=== PATIENT | male | born 1940 | race Caucasian/White ===

== ENCOUNTER 2018-08-09 07:34 | Day surgery (SDC) | payer MEDICARE, OTHER ==
[~2018-08-09] VITALS: Ht 182.9 cm; Wt 231.8 kg
[~2018-08-09 07:34] MED LIST: AMLO5 PO; ASPI325 PO; ATOR40TA PO; Colace100 MG PO; DOCU100 PO; FAMO20 PO; Fleet Enema132 ML PR; GABA300T24 PO; GLIP5 PO; Golytely Packe1 EACH PO; HYDR1TAB94 PO; LOSA25 PO; Lasix20 MG PO; METF500C PO; MIRALAX119 GM PO; Metformin HCl1000 MG PO; OXYC5 PO
[2018-08-09] MEDS ORDERED: LO-DOSE ASPIRIN81 MG (08:33)
== END 2018-08-09 09:47 | disposition home or self-care (01) ==
LOC: ORSCSDS 07:34
PROVIDERS: Student in an Organized Health Care Education/Training Program
PROC: 0DB58ZX Excision of Esophagus, Via Natural or Artificial Opening Endoscopic, Diagnostic (ICD-10-PCS; principal; 2018-08-09 09:15)
PROC: 0DB68ZX Excision of Stomach, Via Natural or Artificial Opening Endoscopic, Diagnostic (ICD-10-PCS; principal; 2018-08-09 09:15)
DX: K22.70 Barrett's esophagus without dysplasia (principal); K29.70 Gastritis, unspecified, without bleeding; K74.60 Unspecified cirrhosis of liver; I10 Essential (primary) hypertension; E11.9 Type 2 diabetes mellitus without complications; Z87.891 Personal history of nicotine dependence; E66.9 Obesity, unspecified; Z68.31 Body mass index [BMI] 31.0-31.9, adult; Z79.82 Long term (current) use of aspirin; Z79.899 Other long term (current) drug therapy
CPT/HCPCS: 82947; 88305; 88342; J2704; J7120

== ENCOUNTER 2018-11-15 07:06 | Day surgery (SDC) | payer MEDICARE, OTHER ==
[~2018-11-15] VITALS: Ht 182.9 cm; Wt 99.2 kg
[~2018-11-15 07:06] MED LIST changes: +GAVILAX17 GM PO; +LO-DOSE ASPIRIN81 MG; +OMEP20ER PO
--- NOTE | 2018-11-15 10:47 | NUR ---
11/15/18 Nano dAdison 5CC NS FOR INFECTION IN SIGMOID COLON POLYP TATTOO SIGMOID COLON LARGE POLYP
--- NOTE | 2018-11-15 11:22 | NUR ---
11/15/18 1122 Lucia Mensah PATIENT REFUSED MULTIPLE OFFERS OF PO FLUIDS.
== END 2018-11-15 11:24 | disposition home or self-care (01) ==
LOC: ORSCSDS 07:06
PROVIDERS: Student in an Organized Health Care Education/Training Program
PROC: 0DB58ZX Excision of Esophagus, Via Natural or Artificial Opening Endoscopic, Diagnostic (ICD-10-PCS; principal; 2018-11-15 08:45)
PROC: 0DBM8ZX Excision of Descending Colon, Via Natural or Artificial Opening Endoscopic, Diagnostic (ICD-10-PCS; principal; 2018-11-15 08:45)
PROC: 0DBN8ZX Excision of Sigmoid Colon, Via Natural or Artificial Opening Endoscopic, Diagnostic (ICD-10-PCS; principal; 2018-11-15 08:45)
PROC: 0DBL8ZX Excision of Transverse Colon, Via Natural or Artificial Opening Endoscopic, Diagnostic (ICD-10-PCS; principal; 2018-11-15 08:45)
PROC: 3E0H8GC Introduction of Other Therapeutic Substance into Lower GI, Via Natural or Artificial Opening Endoscopic (ICD-10-PCS; principal; 2018-11-15 08:45)
PROC: 0DBK8ZX Excision of Ascending Colon, Via Natural or Artificial Opening Endoscopic, Diagnostic (ICD-10-PCS; principal; 2018-11-15 08:45)
DX: K22.70 Barrett's esophagus without dysplasia (principal); K74.60 Unspecified cirrhosis of liver; D12.5 Benign neoplasm of sigmoid colon; D12.2 Benign neoplasm of ascending colon; D12.4 Benign neoplasm of descending colon; D12.3 Benign neoplasm of transverse colon; K57.30 Diverticulosis of large intestine without perforation or abscess without bleeding; I10 Essential (primary) hypertension; E11.9 Type 2 diabetes mellitus without complications; F17.210 Nicotine dependence, cigarettes, uncomplicated; Z79.899 Other long term (current) drug therapy; Z79.82 Long term (current) use of aspirin
CPT/HCPCS: 82947; 88305; J2704; J7120

== ENCOUNTER 2019-08-12 09:01 | Day surgery (SDC) | payer MEDICARE, OTHER ==
[~2019-08-12 09:01] MED LIST changes: +ATORVASTATIN CA40 MG PO
[2019-08-12] MEDS ORDERED: Aspir 8181 MG (09:32)
== END 2019-08-12 12:07 | disposition home or self-care (01) ==
PROVIDERS: Student in an Organized Health Care Education/Training Program
PROC: 0DBK8ZX Excision of Ascending Colon, Via Natural or Artificial Opening Endoscopic, Diagnostic (ICD-10-PCS; principal; 2019-08-12 10:15)
PROC: 0DBL8ZX Excision of Transverse Colon, Via Natural or Artificial Opening Endoscopic, Diagnostic (ICD-10-PCS; principal; 2019-08-12 10:15)
PROC: 0DBN8ZX Excision of Sigmoid Colon, Via Natural or Artificial Opening Endoscopic, Diagnostic (ICD-10-PCS; principal; 2019-08-12 10:15)
PROC: 0DBH8ZX Excision of Cecum, Via Natural or Artificial Opening Endoscopic, Diagnostic (ICD-10-PCS; principal; 2019-08-12 10:15)
DX: Z86.010 Personal history of colon polyps (principal); D12.0 Benign neoplasm of cecum; D12.2 Benign neoplasm of ascending colon; K63.5 Polyp of colon; K57.30 Diverticulosis of large intestine without perforation or abscess without bleeding; K64.8 Other hemorrhoids; I10 Essential (primary) hypertension; J44.9 Chronic obstructive pulmonary disease, unspecified; F17.210 Nicotine dependence, cigarettes, uncomplicated; K70.30 Alcoholic cirrhosis of liver without ascites; N18.3 Chronic kidney disease, stage 3 (moderate); Z86.73 Personal history of transient ischemic attack (TIA), and cerebral infarction without residual deficits; Z79.899 Other long term (current) drug therapy; Z79.82 Long term (current) use of aspirin

== ENCOUNTER 2020-06-17 10:12 | Emergency (ER) | payer MEDICARE, OTHER ==
[~2020-06-17] VITALS: Ht 182.9 cm; Wt 98.4 kg
[~2020-06-17 10:12] MED LIST changes: +Aspir 8181 MG PO
[2020-06-17 10:38] LABS: Hematocrit 45.4 % (37.0-53.0); Hemoglobin 14.5 g/dL (13.5-17.5); Mean Corpuscular HGB 31.9 pg (26.0-34.0); Mean Corpuscular HGB Conc 31.9 g/dL (31.5-36.5); Mean Corpuscular Volume 100 fL (80-100); Mean Platelet Volume 11.1 fL (9.1-12.4); Platelet Count 162 K/mm3 (150-400); RDW Coefficient Variation 17.2 % (11.7-14.2); Red Blood Cell Count 4.55 M/mm3 (4.30-5.90); White Blood Cell Count 10.07 K/mm3 (4.00-11.30)
[2020-06-17 10:57] LABS: Albumin, Blood 2.3 g/dL (3.4-5.0); Albumin/Globulin Ratio 0.4 (0.8-1.8); Bun/Creatinine Ratio 12.3 (12.0-20.0); Creatinine, Blood 2.6 mg/dL (0.60-1.20); Globulin, Blood 5.5 g/dL (2.2-4.0); Potassium, Blood 3.5 mmol/L (3.5-5.5); Total Protein, Blood 7.8 g/dL (6.4-8.2)
[2020-06-17 12:18] LABS: Source, Urine Clean Catch
[2020-06-17 12:21] LABS: Appearance, Urine Clear (Clear); Blood, Urine 4+ (Neg); Color, Urine Yellow (P-Yellow); Glucose Qualitative, Urine 2+ (Neg); Ketones, Urine Neg (Neg); Leukocyte Esterase, Urine 1+ (Neg); Nitrite, Urine Neg (Neg); Protein, Urine 3+ (Neg); Urobilinogen, Urine 3+ (Normal)
[2020-06-17 12:36] LABS: Bilirubin, Urine 1+ (Neg)
[2020-06-17 12:38] LABS: Amorphous Light (0-Heavy); Bacteria Few /hpf; Squamous Epithelial Cells Rare /hpf (Few)
[2020-06-17] MEDS ORDERED: FINA5 PO (13:28)
[2020-06-17] MEDS ORDERED: TAMSULOSIN HCL0.4 M1 PO (13:28)
[2020-06-17] MEDS ORDERED: VITAMIN D32000 UNI1 PO (13:28)
[2020-06-17] MEDS ORDERED: GLIP10 PO (13:29)
[2020-06-17] MEDS ORDERED: B-121000 MC7 PO (13:29)
[2020-06-17] MEDS ORDERED: DOXY100 PO (13:59)
[2020-06-17] MEDS ORDERED: AMOCLA875 PO (13:59)
== END 2020-06-17 14:38 | disposition home or self-care (01) ==
LOC: ER 10:12
PROVIDERS: Emergency Medicine
DX: J18.9 Pneumonia, unspecified organism (principal); E11.22 Type 2 diabetes mellitus with diabetic chronic kidney disease; N18.9 Chronic kidney disease, unspecified; K72.90 Hepatic failure, unspecified without coma; J44.9 Chronic obstructive pulmonary disease, unspecified; F17.210 Nicotine dependence, cigarettes, uncomplicated; Z79.84 Long term (current) use of oral hypoglycemic drugs; Z79.899 Other long term (current) drug therapy; Z79.82 Long term (current) use of aspirin
CPT/HCPCS: 71045; 80053; 81001; 82140; 83690; 85025; 87086; 93005; 93010; 99285-25; A9270

== ENCOUNTER 2020-06-18 08:23 | Emergency (ER) | payer MEDICARE, OTHER ==
[~2020-06-18] VITALS: Ht 182.9 cm; Wt 98.4 kg
[~2020-06-18 08:23] MED LIST changes: +AMOCLA875 PO; +B-121000 MC7 PO; +DOXY100 PO; +FINA5 PO; +GLIP10 PO; +TAMSULOSIN HCL0.4 M1 PO; +VITAMIN D32000 UNI1 PO
[2020-06-18 10:00] LABS: Calcium, Ionized (POC) 1.11 mmol/L (1.10-1.46); Chloride (POC) 106 mmol/L (98-108); Creatinine (POC) 3.5 mg/dL (0.8-1.3); Glucose (ISTAT POC) 114 mg/dL (70-99); Hemoglobin (POC) 13.6 g/dL (13.5-17.5); Potassium (POC) 3.6 mmol/L (3.5-5.5); Sodium (POC) 138 mmol/L (135-148); Total CO2 (POC) 22 mmol/L (21-32)
== END 2020-06-18 10:30 | disposition home or self-care (01) ==
LOC: ER 08:23
PROVIDERS: Physician Assistant
DX: E11.649 Type 2 diabetes mellitus with hypoglycemia without coma (principal); E11.22 Type 2 diabetes mellitus with diabetic chronic kidney disease; N18.9 Chronic kidney disease, unspecified; J44.9 Chronic obstructive pulmonary disease, unspecified; F17.210 Nicotine dependence, cigarettes, uncomplicated; Z79.82 Long term (current) use of aspirin; Z79.899 Other long term (current) drug therapy; Z79.84 Long term (current) use of oral hypoglycemic drugs
CPT/HCPCS: 80047; 82947; 85014; 93005; 93010; 99285-25

== ENCOUNTER 2020-08-28 11:54 | Inpatient (IN) | payer MEDICARE, OTHER ==
[~2020-08-28] VITALS: Ht 182.9 cm; Wt 91.1 kg
[2020-08-28 12:17] LABS: BASOPHILS ABSOLUTE AUTO 0.04 K/mm3 (0.00-0.23); BASOPHILS PERCENT AUTO 0 % (0-2); EOSINOPHILS ABSOLUTE AUTO 0.02 K/mm3 (0.00-0.68); EOSINOPHILS PERCENT AUTO 0 % (0-6); Hematocrit 40.4 % (37.0-53.0); Hemoglobin 14.4 g/dL (13.5-17.5); IMMATURE GRAN ABSOLUTE AUTO 0.16 K/mm3 (0.00-0.10); IMMATURE GRAN PERCENT AUTO 1 % (0-1); LYMPHOCYTES ABSOLUTE AUTO 1.51 K/mm3 (0.84-5.20); LYMPHOCYTES PERCENT AUTO 10 % (21-46); MONOCYTES ABSOLUTE AUTO 0.77 K/mm3 (0.16-1.47); MONOCYTES PERCENT AUTO 5 % (4-13); Mean Corpuscular HGB 31.9 pg (26.0-34.0); Mean Corpuscular HGB Conc 35.6 g/dL (31.5-36.5); Mean Corpuscular Volume 90 fL (80-100); Mean Platelet Volume 10.3 fL (9.1-12.4); NEUTROPHILS ABSOLUTE AUTO 12.52 K/mm3 (1.96-9.15); NEUTROPHILS PERCENT AUTO 83 % (41-73); Platelet Count 245 K/mm3 (150-400); RDW Coefficient Variation 17.9 % (11.7-14.2); RDW Standard Deviation 57.8 fL (35.1-46.3); Red Blood Cell Count 4.51 M/mm3 (4.30-5.90); White Blood Cell Count 15.02 K/mm3 (4.00-11.30)
[2020-08-28 12:37] LABS: Albumin, Blood 1.9 g/dL (3.4-5.0); Albumin/Globulin Ratio 0.4 (0.8-1.8); Bilirubin, Total 4.8 mg/dL (0.1-1.0); Bun/Creatinine Ratio 27.5 (12.0-20.0); Calcium, Blood 7.3 mg/dL (8.5-10.1); Creatinine, Blood 3.16 mg/dL (0.60-1.20); Globulin, Blood 5.1 g/dL (2.2-4.0); Potassium, Blood 3.1 mmol/L (3.5-5.5)
[2020-08-28] MEDS ORDERED: AMLO10 PO (12:51)
[2020-08-28] MEDS ORDERED: CALC.25 PO (12:52)
[2020-08-28] MEDS ORDERED: VITAMIN D325 MC3 PO (12:52)
[2020-08-28] MEDS ORDERED: Vitamin B-121000 MCG PO (12:52)
[2020-08-28] MEDS ORDERED: GLIP10 PO (12:52)
[2020-08-28] MEDS ORDERED: MEGESTROL400 MG/11 PO (12:53)
[2020-08-28] MEDS ORDERED: OXYC5 PO (12:53)
[2020-08-28] MEDS ORDERED: FINA5 PO (12:53)
[2020-08-28] MEDS ORDERED: TAMS.4ER PO (12:53)
[2020-08-28] MEDS ORDERED: TORSE20 PO (12:54)
[2020-08-28 14:03] LABS: International Normalized Ratio 1.35; Prothrombin Time Results 14.3 Sec (9.7-11.5)
[2020-08-28 17:23] LABS: PCO2 Arterial 28.4 mmHg (35-45); PO2 Arterial 58.9 mmHg (80-100); pH Blood Arterial 7.33 (7.35-7.45)
[2020-08-28 17:33] LABS: Magnesium, Blood 1.9 mg/dL (1.6-2.4); Potassium, Blood 3.1 mmol/L (3.5-5.5)
[2020-08-28 20:44] LABS: Hematocrit 40.1 % (37.0-53.0); Hemoglobin 14.1 g/dL (13.5-17.5)
[2020-08-29 04:44] LABS: BASOPHILS ABSOLUTE AUTO 0.04 K/mm3 (0.00-0.23); BASOPHILS PERCENT AUTO 0 % (0-2); EOSINOPHILS ABSOLUTE AUTO 0.11 K/mm3 (0.00-0.68); EOSINOPHILS PERCENT AUTO 1 % (0-6); Hematocrit 37.2 % (37.0-53.0); Hemoglobin 13.4 g/dL (13.5-17.5); IMMATURE GRAN ABSOLUTE AUTO 0.19 K/mm3 (0.00-0.10); IMMATURE GRAN PERCENT AUTO 1 % (0-1); LYMPHOCYTES ABSOLUTE AUTO 1.95 K/mm3 (0.84-5.20); LYMPHOCYTES PERCENT AUTO 15 % (21-46); MONOCYTES ABSOLUTE AUTO 0.78 K/mm3 (0.16-1.47); MONOCYTES PERCENT AUTO 6 % (4-13); Mean Corpuscular HGB 32.1 pg (26.0-34.0); Mean Corpuscular Volume 89 fL (80-100); Mean Platelet Volume 10.7 fL (9.1-12.4); NEUTROPHILS ABSOLUTE AUTO 10.17 K/mm3 (1.96-9.15); NEUTROPHILS PERCENT AUTO 77 % (41-73); Platelet Count 251 K/mm3 (150-400); RDW Coefficient Variation 17.9 % (11.7-14.2); RDW Standard Deviation 57.1 fL (35.1-46.3); Red Blood Cell Count 4.18 M/mm3 (4.30-5.90); White Blood Cell Count 13.24 K/mm3 (4.00-11.30)
[2020-08-29 05:05] LABS: Albumin, Blood 1.8 g/dL (3.4-5.0); Anion Gap 9 mmol/L (6-16); Blood Urea Nitrogen 88 mg/dL (8-24); CO2, Blood 19 mmol/L (21-32); Calcium, Blood 7.1 mg/dL (8.5-10.1); Chloride, Blood 112 mmol/L (98-108); Creatinine, Blood 3.03 mg/dL (0.60-1.20); Glomerular Filtration Rate 21 (60-); Glucose, Blood 129 mg/dL (70-99); Phosphorus, Blood 4.5 mg/dL (2.5-4.9); Potassium, Blood 3.2 mmol/L (3.5-5.5); Sodium, Blood 140 mmol/L (136-145)
[2020-08-29 05:24] LABS: SARS-Cov-2 (COVID-19) PCR, MMC NEGATIVE (NEGATIVE)
--- NOTE | 2020-08-29 06:28 | NUR ---
SUMMARY PT HAS REMAINED NPO SINCE 0000 HRS. PT HAS BEEN SLEEPING FOR MOST OF SHIFT. PT HAD NO COMPLAINTS. CALL LIGHT IN REACH AND BED ALARM ON.
[2020-08-29 08:23] LABS: Source, Urine Clean Catch
[2020-08-29 08:27] LABS: Appearance, Urine Clear (Clear); Blood, Urine 4+ (Neg); Color, Urine Yellow (P-Yellow); Glucose Qualitative, Urine Neg (Neg); Ketones, Urine Neg (Neg); Leukocyte Esterase, Urine 1+ (Neg); Nitrite, Urine Neg (Neg); Protein, Urine 3+ (Neg); Urobilinogen, Urine 2+ (Normal)
[2020-08-29 08:41] LABS: Bilirubin, Urine 1+ (Neg)
[2020-08-29 08:42] LABS: Bacteria Few /hpf; Squamous Epithelial Cells Rare /hpf (Few)
[2020-08-29 08:45] LABS: Red Blood Cells, Urine 25-50 /hpf (0-2)
[2020-08-29 12:16] LABS: Hematocrit 37.6 % (37.0-53.0); Hemoglobin 13.4 g/dL (13.5-17.5)
--- NOTE | 2020-08-29 15:08 | NUR ---
08/29/20 1508 Lianne Delgado History, Chart, Medications and Allergies reviewed before start of procedure. Patient confirms NPO status and agrees with scheduled surgery. 3-LEAD EKG REVIEWED WITH PHYSICIAN PRIOR TO START OF PROCEDURE. MONITOR INTACT WITH CONTINUOUS PULSE OXIMETRY AND INTERMITTENT BP. PATIENT DETERMINED TO BE ASA APPROPRIATE FOR PROPOFOL SEDATION PRIOR TO START OF PROCEDURE BY . Bite Block Placed AND REMOVED AT END OF CASE.
--- NOTE | 2020-08-29 15:21 | NUR ---
History, Chart, Medications and Allergies reviewed before start of procedure. Patient confirms NPO status and agrees with scheduled surgery. Pre-Op teaching done. Pt verbalizes understanding. PT NOTED TO HAVE COURSE UPPER AIRWAY SOUNDS THAT CLEARS WHEN PT COUGHS. LS COURSE THROUGHOUT DURING EXPIRATION. PTS DAUGHTERS STATES THAT PT HAS SOUNDED LIKE THIS FOR AN EXTREMELY LONG TIME. PT HAS LONG HX OF SMOKING SINCE HE WAS ABOUT 14 YEARS OF AGE. IV IN LEFT HAND WAS LEAKING, IV DC'D AND NEW IV PLACED R AC. PT TOLERATED WELL.
--- NOTE | 2020-08-29 17:14 | NUR ---
DAY SURGERY: PATIENT BACK FROM DAY SURGERY. PATIENT ALERT AND ASKING FOR POPSICLE. PATIENT DENIES PAIN OR DISCOMFORT. PATIENT SATTING 92% ON ROOM AIR. PATIENT DENIES NAUSEA OR GASTRIC DISCOMFORT
--- NOTE | 2020-08-29 17:16 | NUR ---
ASKED SEDATION RN RO LET PT WAKE ON HIS OWN.
--- NOTE | 2020-08-29 19:34 | NUR ---
END OF SHIFT SUMMARY: PATIENT DENIED PAIN, NAUSEA, GASTRIC UPSET, AND/OR ABDOMINAL CRAMPING THROUGHOUT THE SHIFT. PATIENT HAD ONE DARK BROWN/BLACK SMEAR. MID AFTERNOON, THE PATIENT LEFT THE UNIT FOR AN EGD. PATIENT TOLERATED WELL. VITALS WERE STABLE ONCE BACK ON THE UNIT. PATIENT AGAIN DENIED NAUSEA, PAIN, GASTRIC UPSET, AND/OR ABDOMINAL CRAMPING. PATIENT TOLERATED PO WITHOUT ANY DISCOMFORT. PATIENT WORKED WITH PT TODAY. DAUGHTER WAS IN TO BE WITH THE PATIENT AND SPEAK WITH THE PHYSICIANS. SHE WILL RETURN TOMORROW.
[2020-08-29 20:53] LABS: Hematocrit 38.6 % (37.0-53.0)
[2020-08-30 04:26] LABS: Hematocrit 37.4 % (37.0-53.0); Hemoglobin 13.1 g/dL (13.5-17.5)
[2020-08-30 04:41] LABS: Albumin, Blood 1.9 g/dL (3.4-5.0); Anion Gap 13 mmol/L (6-16); Blood Urea Nitrogen 88 mg/dL (8-24); Bun/Creatinine Ratio 29.3 (12.0-20.0); CO2, Blood 17 mmol/L (21-32); Calcium, Blood 6.9 mg/dL (8.5-10.1); Chloride, Blood 111 mmol/L (98-108); Glomerular Filtration Rate 21 (60-); Glucose, Blood 295 mg/dL (70-99); Magnesium, Blood 2.2 mg/dL (1.6-2.4); Phosphorus, Blood 3.6 mg/dL (2.5-4.9); Potassium, Blood 3.1 mmol/L (3.5-5.5); Sodium, Blood 141 mmol/L (136-145)
--- NOTE | 2020-08-30 06:14 | NUR ---
SUMMARY PT HAD NO COMPLAINTS. PT HAD FREQUENT LOOSE BM'S. STOOL WAS DARK AND BROWN. PT SLEPT OFF AND ON. CALL LIGHT IN REACH AND BED ALARM ON.
[2020-08-30 12:57] LABS: Hematocrit 36.5 % (37.0-53.0); Hemoglobin 13.1 g/dL (13.5-17.5)
--- NOTE | 2020-08-30 16:35 | NUR ---
SHIFT SUMMARY NO ACUTE CHANGES NOTED TO PT THIS SHIFT. PT A&OX3, ABLE TO MAKE NEEDS KNOWN. PLEASANT AND COOPERATIVE TO CARE. MEDICATED FOR ABD RUQ PAIN PER EMAR X1 THIS SHIFT. NO C/O ANY OTHER ABDOMINAL DISCOMFORT. DENIES CP, SOB OR N&V. PT's DAUGHTER AT BEDSIDE THIS SHIFT. BED AT LOWEST POSITION. CALL LIGHT WITHIN REACH.
--- NOTE | 2020-08-30 22:15 | NUR ---
2135 PT LYING IN BED, DENIES ANY DISCOMFORT AT THIS TIME. PT HAS RONCHI THROUGHOUT LUNGS, ON RA AT 93%. PT HAS A NONPRODUCTIVE COUGH. BS WAS 171. NO OTHER APPARENT SIGNS OF DISTRESS. PT DENIES NEED FOR ANYTHING AT THIS TIME. CALL LIGHT IS IN REACH.
--- NOTE | 2020-08-30 22:46 | NUR ---
PT SITTING UP IN BED EATING A PIECE OF PIE THAT WAS DROPPED OFF FOR HIM. NO APPARENT SIGNS OF DISTRESS. CALL LIGHT IS IN REACH.
--- NOTE | 2020-08-30 23:48 | NUR ---
PT LYING IN BED, EYES CLOSED, APPEARS TO BE RESTING. BREATHING IS EVEN, UNLABORED. NO APPARENT SIGNS OF DISTRESS. CALL LIGHT IS IN REACH.
--- NOTE | 2020-08-31 02:26 | NUR ---
PT LYING IN BED, EYES CLOSED, APPEARS TO BE RESTING. BREATHING IS EVEN, UNLABORED. NO APPARENT SIGNS OF DISTRESS. CALL LIGHT IS IN REACH. BED ALARM IS ON.
--- NOTE | 2020-08-31 04:08 | NUR ---
0331 PT REQUESTED AND RECIEVED PAIN MEDS, WILL EVAL FOR EFFECT. NO OTHER APPARENT SIGNS OF DISTRESS. CALL LIGHT IS IN REACH. BED ALARM IS ON.
--- NOTE | 2020-08-31 04:17 | NUR ---
PT IS AAO X 3-4, AN RA. PT DENIED DISCOMFORT FOR THIS SHIFT. LUNGS HAVE RONCHI THROUGHOUT THAT FROM READING THE PREVIOUS NOTES SEEMS WORSE THIS SHIFT. RUNNING 93% O2. SPOKE WITH DR GALLARDO AND HE ORDERED A CXR FOR THIS AM. BS AT WAS 171.
--- NOTE | 2020-08-31 05:20 | NUR ---
PT LYING IN BED, EYES CLOSEE, APPEARS TO BE RESTING. WAKES EASILY TO VERBAL STIMULI. NO APPARENT SIGNS OF DISTRESS. CALL LIGHT IS IN REACH. BED ALARM IS ON. NO OTHER CHANGES THIS SHIFT.
[2020-08-31 05:46] LABS: BASOPHILS ABSOLUTE AUTO 0.06 K/mm3 (0.00-0.23); BASOPHILS PERCENT AUTO 1 % (0-2); EOSINOPHILS ABSOLUTE AUTO 0.22 K/mm3 (0.00-0.68); EOSINOPHILS PERCENT AUTO 2 % (0-6); Hematocrit 38.1 % (37.0-53.0); Hemoglobin 13.1 g/dL (13.5-17.5); IMMATURE GRAN ABSOLUTE AUTO 0.25 K/mm3 (0.00-0.10); IMMATURE GRAN PERCENT AUTO 2 % (0-1); International Normalized Ratio 1.08; LYMPHOCYTES ABSOLUTE AUTO 1.82 K/mm3 (0.84-5.20); LYMPHOCYTES PERCENT AUTO 15 % (21-46); MONOCYTES ABSOLUTE AUTO 0.84 K/mm3 (0.16-1.47); MONOCYTES PERCENT AUTO 7 % (4-13); Mean Corpuscular HGB 31.9 pg (26.0-34.0); Mean Corpuscular HGB Conc 34.4 g/dL (31.5-36.5); Mean Corpuscular Volume 93 fL (80-100); Mean Platelet Volume 10.8 fL (9.1-12.4); NEUTROPHILS ABSOLUTE AUTO 9.02 K/mm3 (1.96-9.15); NEUTROPHILS PERCENT AUTO 74 % (41-73); Platelet Count 236 K/mm3 (150-400); Prothrombin Time Results 11.6 Sec (9.7-11.5); RDW Coefficient Variation 18.1 % (11.7-14.2); RDW Standard Deviation 58.7 fL (35.1-46.3); Red Blood Cell Count 4.11 M/mm3 (4.30-5.90); White Blood Cell Count 12.21 K/mm3 (4.00-11.30)
[2020-08-31 06:01] LABS: Albumin, Blood 1.8 g/dL (3.4-5.0); Albumin/Globulin Ratio 0.4 (0.8-1.8); Bun/Creatinine Ratio 28.7 (12.0-20.0); Calcium, Blood 6.2 mg/dL (8.5-10.1); Creatinine, Blood 2.72 mg/dL (0.60-1.20); Globulin, Blood 4.9 g/dL (2.2-4.0); Magnesium, Blood 1.9 mg/dL (1.6-2.4); Phosphorus, Blood 2.8 mg/dL (2.5-4.9); Potassium, Blood 2.7 mmol/L (3.5-5.5); Total Protein, Blood 6.7 g/dL (6.4-8.2)
--- NOTE | 2020-08-31 15:57 | NUR ---
Update 08/31/2020 1555: Per Arlene with [place] [facility], [facility] has accepted pt. pending discharge date/time and COVID test. Transportation will be needed at that time. Notified family - daughter Ericka. Update 08/31/2020 1032: SNF recommended by PT and hospital physician. Discussed with daughter Ericka who has concerns regarding patients previous living conditions. She states that pt. was not being care for well at step son Anam's home. Ericka is agreeable to SNF and has talked with the rest of the family as well. They have requested [facility], but are agreeable to [facility] if there is not a bed available at [facility].
--- NOTE | 2020-08-31 19:25 | NUR ---
SHIFT SUMMARY PT A&O3-4, ABLE TO MAKE NEEDS KNOWN, PLEASANT AND COOPERATIVE TO CARE. PT MEDICATED FOR RUQ ABD PAIN PER EMAR. NO C/O CP, SOB, OR N&V. PT's DAUGHTER AT BEDSIDE THIS SHIFT. PT IS CONTINENT / INCONTINENT, NO C/O DYSURIA. PT WORKED WITH PT THIS SHIFT, PT REQUIRES 1P ASSIST W/ FWW. PT CALM AND COMFORTABLE IN BED AT THIS TIME. BED AT LOWEST POSITION. CALL LIGHT WITHIN REACH.
[2020-09-01 04:46] LABS: Hematocrit 35.1 % (37.0-53.0); Hemoglobin 12.5 g/dL (13.5-17.5)
[2020-09-01 05:06] LABS: Magnesium, Blood 1.6 mg/dL (1.6-2.4)
[2020-09-01 05:08] LABS: Albumin, Blood 1.6 g/dL (3.4-5.0); Anion Gap 9 mmol/L (6-16); Blood Urea Nitrogen 67 mg/dL (8-24); Bun/Creatinine Ratio 27.3 (12.0-20.0); CO2, Blood 20 mmol/L (21-32); Calcium, Blood 5.8 mg/dL (8.5-10.1); Chloride, Blood 109 mmol/L (98-108); Creatinine, Blood 2.45 mg/dL (0.60-1.20); Glomerular Filtration Rate 27 (60-); Glucose, Blood 168 mg/dL (70-99); Phosphorus, Blood 2.8 mg/dL (2.5-4.9); Potassium, Blood 3.7 mmol/L (3.5-5.5); Sodium, Blood 138 mmol/L (136-145)
--- NOTE | 2020-09-01 05:49 | NUR ---
DR Craig updated on critical calcium value & he ordered 1 amp calcium gluconate IVPB x 1 to treat. PT has had IV bicarb running all night at 50 ml HR. PT asks for pain med this AM Ultram 50 mg given for rt upper abd pain. No S/SX GI bleed.
[2020-09-01 12:51] LABS: Influenza A Negative (NEGATIVE); Influenza B Negative (NEGATIVE)
[2020-09-01 13:23] LABS: SARS-Cov-2 (COVID-19) PCR, MMC NEGATIVE (NEGATIVE)
[2020-09-01] MEDS ORDERED: GLIP5 PO (13:46)
[2020-09-01] MEDS ORDERED: SPIR25 PO (13:46)
[2020-09-01] MEDS ORDERED: PANT40 PO (13:47)
[2020-09-01] MEDS ORDERED: POTCHL20ER PO (13:47)
--- NOTE | 2020-09-01 15:16 | NUR ---
Update 08/31/2020 1555: Davian Jacobs with [place] [facility], [facility] has accepted pt. pending discharge date/time and COVID test. Transportation will be needed at that time. Notified family - daughter Ericka. Pt. will need appointment scheduled by [facility] team via either telehealth and CCM team or in office. Advised CCM coordinator that pt. is admitting.
--- NOTE | 2020-09-01 16:19 | NUR ---
DISCHARGE SUMMARY PT DISCHARGE TO FACILITY THIS SHIFT. TRANSPORTED VIA [facility]. PT TRANSPORTED TO [facility]. REPORT GIVEN TO MAGALY MONTERO. PT's DAUGHTER PRESENT DURING DISCHARGE PROCESS. NO COMPLAINTS OR CONCERNS NOTED FROM PATIENT OR FAMILY. PT MEDICATED FOR PAIN PER EMAR THIS SHIFT. PT CALM AND COMFORTABLE PRIOR TO DISCHARGE. PT AND FAMILY VERBALIZED UNDERSTANDING OF DISCHARGE ORDERS. DISCHARGE PAPERWORK GIVEN TO PT UPON DISCHARGE.
[2020-09-01] MEDS ORDERED: TRAM50 PO (17:44)
== END 2020-09-01 16:08 | DRG 381 ==
LOC: ER 11:54 → MEDS 11:55
PROVIDERS: Emergency Medicine; Family Medicine; Internal Medicine Gastroenterology; Internal Medicine Nephrology; ADMIT Internal Medicine
PROC: 0DB68ZX Excision of Stomach, Via Natural or Artificial Opening Endoscopic, Diagnostic (ICD-10-PCS; principal; 2020-08-30)
DX: K22.11 Ulcer of esophagus with bleeding (principal); N18.4 Chronic kidney disease, stage 4 (severe); N17.9 Acute kidney failure, unspecified; E87.2 Acidosis; N25.81 Secondary hyperparathyroidism of renal origin; E87.1 Hypo-osmolality and hyponatremia; Z66 Do not resuscitate; K22.70 Barrett's esophagus without dysplasia; K26.4 Chronic or unspecified duodenal ulcer with hemorrhage; Z20.822 Contact with and (suspected) exposure to COVID-19; E86.9 Volume depletion, unspecified; J44.9 Chronic obstructive pulmonary disease, unspecified; E87.6 Hypokalemia; E11.22 Type 2 diabetes mellitus with diabetic chronic kidney disease; D72.829 Elevated white blood cell count, unspecified; M19.90 Unspecified osteoarthritis, unspecified site; K70.30 Alcoholic cirrhosis of liver without ascites; K70.10 Alcoholic hepatitis without ascites; E11.42 Type 2 diabetes mellitus with diabetic polyneuropathy; G25.81 Restless legs syndrome; R63.4 Abnormal weight loss; D63.1 Anemia in chronic kidney disease; N40.0 Benign prostatic hyperplasia without lower urinary tract symptoms; I12.9 Hypertensive chronic kidney disease with stage 1 through stage 4 chronic kidney disease, or unspecified chronic kidney disease; E78.5 Hyperlipidemia, unspecified; F17.210 Nicotine dependence, cigarettes, uncomplicated; Z86.73 Personal history of transient ischemic attack (TIA), and cerebral infarction without residual deficits; Z98.890 Other specified postprocedural states; Z91.030 Bee allergy status; Z79.84 Long term (current) use of oral hypoglycemic drugs; Z79.899 Other long term (current) drug therapy
CPT/HCPCS: 36415; 36600; 71045; 74150; 76700; 80053; 80069; 81001; 82105; 82803; 82941; 82947; 83605; 83735; 84100; 84132; 84300; 85014; 85018; 85025; 85610; 85730; 86850; 86900; 86901; 87040; 87086; 87804; 87807; 88305; 88342; 93005; 93010; 96365; 96366; 96372; 96375; 96376; 97110; 97116; 97161; 97166; 97530; 97535; 99285-25; A9270; C9113; G0378; J0610; J0696; J1170; J1650; J2405; J2704; J3480; J7030; J7050; J7070; U0004

== ENCOUNTER → 2020-11-05 | Outpatient (CLI) | payer MEDICARE, OTHER ==
[~2020-11-05] MED LIST changes: +AMLO10 PO; +CALC.25 PO; +MEGESTROL400 MG/11 PO; +PANT40 PO; +POTCHL20ER PO; +SPIR25 PO; +TAMS.4ER PO; +TORSE20 PO; +TRAM50 PO; +VITAMIN D325 MC3 PO; +Vitamin B-121000 MCG PO
[2020-11-05 11:24] LABS: Anion Gap 8 mmol/L (6-16); Blood Urea Nitrogen 83 mg/dL (8-24); Bun/Creatinine Ratio 20.7 (12.0-20.0); CO2, Blood 16 mmol/L (21-32); Calcium, Blood 8.7 mg/dL (8.5-10.1); Chloride, Blood 115 mmol/L (98-108); Creatinine, Blood 4.01 mg/dL (0.60-1.20); Glomerular Filtration Rate 14 (60-); Glucose, Blood 128 mg/dL (70-99); Phosphorus, Blood 5.1 mg/dL (2.5-4.9); Potassium, Blood 4.4 mmol/L (3.5-5.5); Sodium, Blood 139 mmol/L (136-145)
== END | disposition home or self-care (01) ==
LOC: EDSTATUS 09:48 → LAB RH 10:01
PROVIDERS: Family Medicine
DX: N18.4 Chronic kidney disease, stage 4 (severe) (principal)
CPT/HCPCS: 80069; 85018

== ENCOUNTER → 2020-11-13 | Outpatient (CLI) | payer MEDICARE, OTHER ==
[2020-11-14 16:12] LABS: CORONAVIRUS (COVID19) CSH-NRL Negative (Negative)
== END | disposition home or self-care (01) ==
LOC: EDSTATUS 09:49 → LAB RH 12:49
PROVIDERS: Internal Medicine
DX: U07.1 COVID-19 (principal)
CPT/HCPCS: U0003

== ENCOUNTER → 2020-12-09 | Outpatient (CLI) | payer MEDICARE, OTHER ==
[2020-12-09 13:00] LABS: Albumin, Blood 2.4 g/dL (3.4-5.0); Anion Gap 8 mmol/L (6-16); Blood Urea Nitrogen 76 mg/dL (8-24); Bun/Creatinine Ratio 20.7 (12.0-20.0); CO2, Blood 18 mmol/L (21-32); Chloride, Blood 112 mmol/L (98-108); Creatinine, Blood 3.67 mg/dL (0.60-1.20); Glomerular Filtration Rate 16 (60-); Glucose, Blood 236 mg/dL (70-99); Phosphorus, Blood 5.1 mg/dL (2.5-4.9); Potassium, Blood 4.7 mmol/L (3.5-5.5); Sodium, Blood 138 mmol/L (136-145)
== END | disposition home or self-care (01) ==
LOC: LAB RH 11:25 → EDSTATUS 13:58
PROVIDERS: Family Medicine
DX: E11.22 Type 2 diabetes mellitus with diabetic chronic kidney disease (principal); N18.4 Chronic kidney disease, stage 4 (severe); K70.31 Alcoholic cirrhosis of liver with ascites; K26.0 Acute duodenal ulcer with hemorrhage
CPT/HCPCS: 80069; 83036

== ENCOUNTER → 2021-02-05 | Outpatient (CLI) | payer MEDICARE, OTHER ==
[~2021-02-05] MED LIST changes: +Acetaminophen325 M1 PO; +CEPH250A PO
[2021-02-05 17:52] LABS: Albumin, Blood 2.3 g/dL (3.4-5.0); Anion Gap 8 mmol/L (6-16); Blood Urea Nitrogen 51 mg/dL (8-24); Bun/Creatinine Ratio 14.1 (12.0-20.0); CO2, Blood 20 mmol/L (21-32); Calcium, Blood 8.6 mg/dL (8.5-10.1); Chloride, Blood 107 mmol/L (98-108); Creatinine, Blood 3.61 mg/dL (0.60-1.20); Glomerular Filtration Rate 16 (60-); Glucose, Blood 181 mg/dL (70-99); Phosphorus, Blood 5.5 mg/dL (2.5-4.9); Sodium, Blood 135 mmol/L (136-145)
== END | disposition home or self-care (01) ==
LOC: EDSTATUS 10:01 → LAB RH 16:50
PROVIDERS: Internal Medicine
DX: K70.31 Alcoholic cirrhosis of liver with ascites (principal)
CPT/HCPCS: 80069

== ENCOUNTER → 2021-02-16 | Outpatient (CLI) | payer MEDICARE, OTHER ==
[2021-02-16 12:31] LABS: Albumin, Blood 2.4 g/dL (3.4-5.0); Anion Gap 10 mmol/L (6-16); Blood Urea Nitrogen 57 mg/dL (8-24); Bun/Creatinine Ratio 16.8 (12.0-20.0); CO2, Blood 22 mmol/L (21-32); Calcium, Blood 8.9 mg/dL (8.5-10.1); Chloride, Blood 107 mmol/L (98-108); Creatinine, Blood 3.39 mg/dL (0.60-1.20); Glomerular Filtration Rate 18 (60-); Glucose, Blood 180 mg/dL (70-99); Phosphorus, Blood 3.9 mg/dL (2.5-4.9); Sodium, Blood 139 mmol/L (136-145)
== END | disposition home or self-care (01) ==
LOC: LAB RH 09:30 → EDSTATUS 10:03
PROVIDERS: Family Medicine
DX: K70.31 Alcoholic cirrhosis of liver with ascites (principal); N18.9 Chronic kidney disease, unspecified; D63.1 Anemia in chronic kidney disease
CPT/HCPCS: 80069

== ENCOUNTER → 2021-03-15 | Outpatient (CLI) | payer MEDICARE, OTHER | END | disposition home or self-care (01) | LOC: LAB RH 11:20 → EDSTATUS 14:44 | DX: E11.40 Type 2 diabetes mellitus with diabetic neuropathy, unspecified (principal) | CPT/HCPCS: 83036 ==

== ENCOUNTER → 2021-03-25 | Outpatient (CLI) | payer MEDICARE, OTHER ==
[2021-03-25 09:58] LABS: Albumin, Blood 2.5 g/dL (3.4-5.0); Anion Gap 8 mmol/L (6-16); Blood Urea Nitrogen 52 mg/dL (8-24); Bun/Creatinine Ratio 11.2 (12.0-20.0); CO2, Blood 26 mmol/L (21-32); Calcium, Blood 8.7 mg/dL (8.5-10.1); Chloride, Blood 103 mmol/L (98-108); Creatinine, Blood 4.66 mg/dL (0.60-1.20); Glomerular Filtration Rate 12 (60-); Glucose, Blood 86 mg/dL (70-99); Phosphorus, Blood 4.7 mg/dL (2.5-4.9); Potassium, Blood 4.4 mmol/L (3.5-5.5); Sodium, Blood 137 mmol/L (136-145)
== END | disposition home or self-care (01) ==
LOC: LAB RH 08:22 → EDSTATUS 14:46
PROVIDERS: Family Medicine
DX: N18.5 Chronic kidney disease, stage 5 (principal); R94.5 Abnormal results of liver function studies
CPT/HCPCS: 80069; 85018

== ENCOUNTER → 2021-04-05 | Outpatient (CLI) | payer MEDICARE, OTHER ==
[2021-04-05 16:27] LABS: Albumin, Blood 2.6 g/dL (3.4-5.0); Anion Gap 8 mmol/L (6-16); Blood Urea Nitrogen 49 mg/dL (8-24); Bun/Creatinine Ratio 11.7 (12.0-20.0); CO2, Blood 24 mmol/L (21-32); Calcium, Blood 8.5 mg/dL (8.5-10.1); Chloride, Blood 102 mmol/L (98-108); Creatinine, Blood 4.18 mg/dL (0.60-1.20); Glomerular Filtration Rate 14 (60-); Glucose, Blood 189 mg/dL (70-99); Phosphorus, Blood 3.8 mg/dL (2.5-4.9); Potassium, Blood 4.7 mmol/L (3.5-5.5); Sodium, Blood 134 mmol/L (136-145)
== END | disposition home or self-care (01) ==
LOC: EDSTATUS 11:05 → LAB RH 13:37
PROVIDERS: Internal Medicine
DX: K70.31 Alcoholic cirrhosis of liver with ascites (principal)
CPT/HCPCS: 80069; 85018

== ENCOUNTER → 2021-04-15 | Outpatient (CLI) | payer MEDICARE, OTHER ==
[2021-04-15 13:54] LABS: Albumin, Blood 2.8 g/dL (3.4-5.0); Anion Gap 11 mmol/L (6-16); Blood Urea Nitrogen 64 mg/dL (8-24); Bun/Creatinine Ratio 15.2 (12.0-20.0); CO2, Blood 23 mmol/L (21-32); Calcium, Blood 8.4 mg/dL (8.5-10.1); Chloride, Blood 103 mmol/L (98-108); Glomerular Filtration Rate 14 (60-); Glucose, Blood 269 mg/dL (70-99); Phosphorus, Blood 4.4 mg/dL (2.5-4.9); Potassium, Blood 4.1 mmol/L (3.5-5.5); Sodium, Blood 137 mmol/L (136-145)
== END | disposition home or self-care (01) ==
LOC: LAB RH 10:45 → EDSTATUS 11:07
PROVIDERS: Internal Medicine Nephrology
DX: N18.4 Chronic kidney disease, stage 4 (severe) (principal)
CPT/HCPCS: 80069; 85018

== ENCOUNTER → 2021-04-19 | Outpatient (CLI) | payer MEDICARE, OTHER ==
[2021-04-20 08:11] LABS: CALCIUM, SERUM 8.9 mg/dL (8.6-10.2); CREATININE, SERUM 3.89 mg/dL (0.76-1.27); PHOSPHORUS, SERUM 4.2 mg/dL (2.8-4.1); POTASSIUM, SERUM 4.2 mmol/L (3.5-5.2)
== END | disposition home or self-care (01) ==
LOC: EDSTATUS 11:09 → LAB RH 11:41
PROVIDERS: Family Medicine
DX: N18.5 Chronic kidney disease, stage 5 (principal)
CPT/HCPCS: 80069; 85018

== ENCOUNTER 2021-04-21 17:29 | Inpatient (IN) | payer MEDICARE, OTHER ==
[~2021-04-21] VITALS: Ht 182.9 cm; Wt 92.0 kg
[~2021-04-21 17:29] MED LIST changes: -Acetaminophen325 M1 PO; -CEPH250A PO
[2021-04-21 18:20] LABS: BASOPHILS ABSOLUTE AUTO 0.08 K/mm3 (0.00-0.23); BASOPHILS PERCENT AUTO 1 % (0-2); EOSINOPHILS ABSOLUTE AUTO 0.49 K/mm3 (0.00-0.68); EOSINOPHILS PERCENT AUTO 7 % (0-6); Hematocrit 37.9 % (37.0-53.0); Hemoglobin 12.1 g/dL (13.5-17.5); IMMATURE GRAN ABSOLUTE AUTO 0.02 K/mm3 (0.00-0.10); IMMATURE GRAN PERCENT AUTO 0 % (0-1); LYMPHOCYTES ABSOLUTE AUTO 2.49 K/mm3 (0.84-5.20); LYMPHOCYTES PERCENT AUTO 34 % (21-46); MONOCYTES ABSOLUTE AUTO 0.53 K/mm3 (0.16-1.47); MONOCYTES PERCENT AUTO 7 % (4-13); Mean Corpuscular HGB 30.3 pg (26.0-34.0); Mean Corpuscular HGB Conc 31.9 g/dL (31.5-36.5); Mean Corpuscular Volume 95 fL (80-100); Mean Platelet Volume 9.4 fL (9.1-12.4); NEUTROPHILS ABSOLUTE AUTO 3.71 K/mm3 (1.96-9.15); NEUTROPHILS PERCENT AUTO 51 % (41-73); Platelet Count 225 K/mm3 (150-400); RDW Coefficient Variation 13.7 % (11.7-14.2); RDW Standard Deviation 47.7 fL (35.1-46.3); White Blood Cell Count 7.32 K/mm3 (4.00-11.30)
[2021-04-21 18:25] LABS: Calcium, Ionized (POC) 1.15 mmol/L (1.10-1.46); Chloride (POC) 100 mmol/L (98-108); Creatinine (POC) 4.5 mg/dL (0.8-1.3); Glucose (ISTAT POC) 170 mg/dL (70-99); Hemoglobin (POC) 12.2 g/dL (13.5-17.5); Potassium (POC) 4.3 mmol/L (3.5-5.5); Sodium (POC) 134 mmol/L (135-148); Total CO2 (POC) 24 mmol/L (21-32)
[2021-04-21 18:55] LABS: Albumin/Globulin Ratio 0.6 (0.8-1.8); Bilirubin, Total 0.3 mg/dL (0.1-1.0); Bun/Creatinine Ratio 12.7 (12.0-20.0); Calcium, Blood 8.6 mg/dL (8.5-10.1); Creatinine, Blood 4.42 mg/dL (0.60-1.20); Globulin, Blood 4.7 g/dL (2.2-4.0); Magnesium, Blood 1.8 mg/dL (1.6-2.4); Total Protein, Blood 7.7 g/dL (6.4-8.2); Troponin I 0.033 ng/mL (0.000-0.040)
[2021-04-21 20:43] LABS: Thyroid Stimulating Hormone 4.99 uIU/mL (0.360-4.800)
[2021-04-21 21:02] LABS: Influenza A, PCR NEGATIVE (NEGATIVE); Influenza B, PCR NEGATIVE (NEGATIVE); Resp Syncytial Virus, PCR NEGATIVE (NEGATIVE); SARS-Cov-2 (COVID-19) PCR, MMC NEGATIVE (NEGATIVE)
--- NOTE | 2021-04-22 02:06 | NUR ---
ARRIVAL TO ICU 1 PT ARRIVED TO ICU 1 AT 2149 FROM DESIGN CHECKER ALREADY ON ICU BED. PT IS ALERT/ORIENTED X3; IS ABLE TO MAKE HIS NEEDS KNOWN BUT CAN BE REPETATIVE AND UNSURE OF SITUATION. AFEBRILE. SPO2 >90% ON RA. TEMPORARY PACER IN PLACE TO RT IJ; PT TOLERATING WELL; HR 60'S; PACER SETTINGS ARE RATE 60, OUTPUT 3, SENSE 2; ALL TEMPORARY PACING LINES UNDER TAGEDERM DRESSING PLACED IN THE DESIGN CHECKER; INSTRUCTED TO NOT REMOVE TAGEDERM DRESSING AND IF DRESSING BECOMES UNDONE TO CALL DR BAIG TO REPLACE. SBP 140-150'S. PT NO C/O CHEST PAIN, OR DYSPNEA. SEE ADDMISSION ASSESSMENT FOR FULL ASSESSMENT.
[2021-04-22 03:20] LABS: BASOPHILS ABSOLUTE AUTO 0.06 K/mm3 (0.00-0.23); BASOPHILS PERCENT AUTO 1 % (0-2); EOSINOPHILS ABSOLUTE AUTO 0.37 K/mm3 (0.00-0.68); EOSINOPHILS PERCENT AUTO 7 % (0-6); Hematocrit 34.3 % (37.0-53.0); Hemoglobin 11.1 g/dL (13.5-17.5); IMMATURE GRAN ABSOLUTE AUTO 0.01 K/mm3 (0.00-0.10); IMMATURE GRAN PERCENT AUTO 0 % (0-1); LYMPHOCYTES ABSOLUTE AUTO 2.23 K/mm3 (0.84-5.20); LYMPHOCYTES PERCENT AUTO 40 % (21-46); MONOCYTES ABSOLUTE AUTO 0.55 K/mm3 (0.16-1.47); MONOCYTES PERCENT AUTO 10 % (4-13); Mean Corpuscular HGB 30.7 pg (26.0-34.0); Mean Corpuscular HGB Conc 32.4 g/dL (31.5-36.5); Mean Corpuscular Volume 95 fL (80-100); Mean Platelet Volume 9.2 fL (9.1-12.4); NEUTROPHILS ABSOLUTE AUTO 2.36 K/mm3 (1.96-9.15); NEUTROPHILS PERCENT AUTO 42 % (41-73); Platelet Count 182 K/mm3 (150-400); RDW Coefficient Variation 14.1 % (11.7-14.2); Red Blood Cell Count 3.61 M/mm3 (4.30-5.90); White Blood Cell Count 5.58 K/mm3 (4.00-11.30)
[2021-04-22 03:55] LABS: Albumin, Blood 2.5 g/dL (3.4-5.0); Albumin/Globulin Ratio 0.5 (0.8-1.8); Bilirubin, Total 0.3 mg/dL (0.1-1.0); Bun/Creatinine Ratio 14.1 (12.0-20.0); Calcium, Blood 8.5 mg/dL (8.5-10.1); Creatinine, Blood 4.26 mg/dL (0.60-1.20); Globulin, Blood 4.7 g/dL (2.2-4.0); Potassium, Blood 3.7 mmol/L (3.5-5.5); Total Protein, Blood 7.2 g/dL (6.4-8.2)
--- NOTE | 2021-04-22 06:32 | NUR ---
END OF SHIFT SUMMARY NO ACUTE EVENTS OVER NIGHT; PT SLEPT FOR SEVERAL HOURS. NO CHANGE IN NEURO STATUS, IS VERY EEK. AFEBRILE. WHILE SLEEPING PT NEEDING 4L NC TO MAINTAIN SPO2 >90%. TEMPORARY PACER SETTINGS REMAIN THE SAME ALL NIGHT, HR 60-70'S; OCCATIONALLY HR 50'S. SBP 130-140'S. NPO SINCE MIDNIGHT. PT ABLE TO USE URINAL INDEPENDENTLY. WILL REPORT TO AM RN WHEN AVAILABLE.
--- NOTE | 2021-04-22 07:51 | NUR ---
ASSUMPTION OF CARE Pt is awake and a/o x 3 this morning with no complaints. He is very pleasant and asking about the time of his pacer placement. Dr Gerardo stopped by and asked to keep the pt NPO this morning so he can go to the heart center this morning. His temp pacer intact with the dressing in place and is paced at 60 bpm. He is on 4 lpm with o2 sat at 95%. He is using the urinal at the bedside and calls appropriately when needed.
[2021-04-22 08:51] LABS: Free Thyroxine 1.05 ng/dL (0.70-1.60); Triiodothyronine, Free 2.09 pg/mL (2.18-3.98)
--- NOTE | 2021-04-22 11:47 | NUR ---
Spiritual Care visit. Pt. was resting in a darkened room. Pt. responded when I announced myself. Pt. displayed evidence of caution. Offered pastoral prayer. Pt. declined for the present moment. When asked if I could continue to check on him pt. displayed eveidence of affirmation, and verbalized agreement.
--- NOTE | 2021-04-22 13:15 | NUR ---
UPDATE Pt has been transported to the heart center for his pacemaker placement.
--- NOTE | 2021-04-22 14:28 | NUR ---
UPDATE Pt returned from the heart center with new pacemaker. He is awake and a/o x 3. His VSS. His daughter has been updated.
--- NOTE | 2021-04-22 17:00 | NUR ---
SHIFT SUMMARY Pt remains a/o x 3. He does have pain to his left shoulder s/p pacemaker placement and he was medicated with PO meds as ordered and he has an ice paick in place. He has a CDI dressing to the new pacer site on the left and a clear dressing over the site where the temp pace maker was removed. His CXR was completed as ordered. He is drinking fluids and has a sugar free jello. He continues to use the urinal at the bedside. He has been changed to PCU status and the plan is for him to DC back to tomorrow. His daughter has been updated at his request. He uses his call light appropriately and has it in reach.
--- NOTE | 2021-04-22 17:46 | NUR ---
Report was given to HIV CTS SPECIALISTMAGALY Arauz and Pt is being transported to PCU 05. The pt was made aware and agreeable.
--- NOTE | 2021-04-23 17:47 | NUR ---
SHIFT NOTE PT HAS BEEN TREATED T/O THE DAY FOR PAIN REPORTED TO INCISION SITE. PT DENIES SOB, OR CP THAT IS NOT RELATED TO PACEMAKER PLACEMENT. PT A/O X3, HE IS VERY [place] AND IS SLOW TO ANSWER, BUT ANSWERS QUESTIONS APPROPRIATELY. PT WILL BE NPO AT MIDNIGHT FOR PACEMAKER LEAD REVISION, PT SCHEDULED FOR PROCEDURE TOMORROW AT 0800 WILL HAVE ANCEF BEFORE HE LEAVES. PT HAS BEEN EDUCATED ABOUT PLAN FOR TOMORROW TO REVISE PACEMAKER. NO ACUTE CHANGES FOR PT OTHERWISE. VSS. PT REMAINS IN PACED RHYTHM
--- NOTE | 2021-04-24 05:24 | NUR ---
SHIFT SUMMARY PATIENT IS ALERT AND ORIENTED X3-4, FORGETFULL AT TIMES, SLOW TO RESPOND (ALATNA). COOPERATIVE WITH CARE. 02 SATS 94% ON 3-4L NC. PATIENT DENIES SOB. COUGH BUT NO SPUTUM PRODUCTION NOTICED. HR PACED @60s. UPPER LEFT CHEST BANDAGE HAS SMALL SPOT OF BLOOD, OTHERWISE C/D/I. SITE WNL. BP STABLE. NPO SINCE MIDNIGHT FOR PACEMAKER LEAD REVISION THIS AM. PATIENT USES URINAL TO VOID, BRIEF CHANGED NEEDED FOR SOME INCONTINENCE. PATIENT REPOSITIONS SELF IN BED. CALL LIGHT IN REACH.
--- NOTE | 2021-04-24 15:55 | NUR ---
END OF SHIFT SUMMARY: BEATRIZ HAS BEEN SLEEPING MOST OF THE DAY. BEATRIZ IS PACED WITH NO ABNORMALITIES SINCE PATIENT WENT TO [facility] FOR LEAD READJUSTMENT FOR LCW PACER, WENT FROM A PASSIVE LEAD TO FIXED, 100MCG FENT, PATIENT HAS BEEN ON ON 2L VIA NC, SATURATING WELL SPO2 GREATER THAN 94%. DENIES CHEST PAIN, SOB. HAS BEEN USING THE BEDISDE URINAL WITH LITTLE MESS TODAY. NO INCREASED EDEMA, OR REDNESS, LUNG SOUNDS UNCHANGED FROM PREVIOUS RN REPORT. BEATRIZ SWITCHED TO [facility] SOFT, DUE TO NOT HAVING HIS DENTURES IN PLACE. NO EPIDSODES OF HYPOGLYCEMIA, PATIENT OBEYS COMMANDS, SELF REPOSITIONS MORE THAN Q2. HAS NOT HAD BMM SINCE STAY, HOWEVER, BEATRIZ HAS BEEN MAINLY NPO SINCE ADMIT. SCD'S IN PLACE. TEGADERM CHG IN PLACE ON HIS RIGHT NECK, WILL BE RECIEVING 2 X MORE DOSES OF ANCEF AT RENAL DOSING. PATIENT IS ALERT AND ORIENTED 3-4, FORGETFUL AT TIMES, RECEPTABLE TO EDUCATION WILL CONTINUE TO MONITOR. HAVE NOT COVERED FOR COVERAGE YET. WILL CONTINUE TO MONITOR
--- NOTE | 2021-04-24 23:25 | NUR ---
Assumed care of pt at 1900, a/ox4. Pt complains of L shoulder pain where pacer site is - medicated per emar. L arm restrictions being followed. Maintaining above 95% on RA. LS clear RUL, wheezes t/o the rest. Paced in 70's on tele, faint +1 pulses t/o. Yellowing of skin/eyes noted. KACI c/d/i with localized pain, but no redness. Will update as changes occur.
[2021-04-25 10:52] LABS: Influenza A, PCR NEGATIVE (NEGATIVE); Influenza B, PCR NEGATIVE (NEGATIVE); Resp Syncytial Virus, PCR NEGATIVE (NEGATIVE); SARS-Cov-2 (COVID-19) PCR, MMC NEGATIVE (NEGATIVE)
[2021-04-25] MEDS ORDERED: AMLO5 PO ×2 (11:09)
[2021-04-25] MEDS ORDERED: FAMO20 PO ×2 (11:09)
[2021-04-25] MEDS ORDERED: CEPH250A PO ×2 (11:11)
[2021-04-25] MEDS ORDERED: Acetaminophen325 M1 PO ×2 (11:11)
--- NOTE | 2021-04-25 15:20 | NUR ---
DISCHARGE NOTE THIS NURSE RE-EDUCATED PATIENT ABOUT IMPORTANCE OF LEFT ARM RESTRICTIONS FOR S/P PACERMAKER INSERTION. PT WAS ALERT AND ORIENTED X 4 AND ABLE TO SIGN DISCHARGE PAPER. DISCHARGE INSTRUCTIONS WERE SENT WITH PATIENT INCLUDING ALL OF PATIENT BELONGINGS. CHARGE NURSE WAYLON GAVE REPORT TO JACKIE MCKENZIE. RIDE ARRANGED TO ACCOMODATE TO WHEELCHAIR ACCESSIBILITY. PT LEFT PCU APPROX. 1515. AND WAS STABLE UPON DISCHARGE.
== END 2021-04-25 15:17 | disposition home or self-care (01) | DRG 242 ==
LOC: ER 17:29 → ICUW 21:33 → ICUE 21:33 → PCU 21:33 → ICUE 21:51 → PCU 04-22 17:58
PROVIDERS: Emergency Medicine; Internal Medicine; Internal Medicine Cardiovascular Disease; Physician Assistant; ADMIT Internal Medicine
PROC: 5A1223Z Performance of Cardiac Pacing, Continuous (ICD-10-PCS; 2021-04-21)
PROC: 0JH606Z Insertion of Pacemaker, Dual Chamber into Chest Subcutaneous Tissue and Fascia, Open Approach (ICD-10-PCS; principal; 2021-04-22)
PROC: 02H63JZ Insertion of Pacemaker Lead into Right Atrium, Percutaneous Approach (ICD-10-PCS; 2021-04-22)
PROC: 02HK3JZ Insertion of Pacemaker Lead into Right Ventricle, Percutaneous Approach (ICD-10-PCS; 2021-04-22)
PROC: 02PA3MZ Removal of Cardiac Lead from Heart, Percutaneous Approach (ICD-10-PCS; 2021-04-24)
PROC: 02H63JZ Insertion of Pacemaker Lead into Right Atrium, Percutaneous Approach (ICD-10-PCS; 2021-04-24)
DX: I44.2 Atrioventricular block, complete (principal); N18.6 End stage renal disease; J18.9 Pneumonia, unspecified organism; T82.120A Displacement of cardiac electrode, initial encounter; Z20.822 Contact with and (suspected) exposure to COVID-19; Z66 Do not resuscitate; K70.30 Alcoholic cirrhosis of liver without ascites; E11.22 Type 2 diabetes mellitus with diabetic chronic kidney disease; E78.5 Hyperlipidemia, unspecified; D63.1 Anemia in chronic kidney disease; H91.90 Unspecified hearing loss, unspecified ear; K22.70 Barrett's esophagus without dysplasia; M19.90 Unspecified osteoarthritis, unspecified site; N40.0 Benign prostatic hyperplasia without lower urinary tract symptoms; J44.9 Chronic obstructive pulmonary disease, unspecified; G25.81 Restless legs syndrome; G89.29 Other chronic pain; M25.512 Pain in left shoulder; E03.9 Hypothyroidism, unspecified; Z99.2 Dependence on renal dialysis; Z28.21 Immunization not carried out because of patient refusal; Z91.030 Bee allergy status; Z79.899 Other long term (current) drug therapy; Z98.890 Other specified postprocedural states; Z86.73 Personal history of transient ischemic attack (TIA), and cerebral infarction without residual deficits; Z79.84 Long term (current) use of oral hypoglycemic drugs; Z87.891 Personal history of nicotine dependence; Y71.2 Prosthetic and other implants, materials and accessory cardiovascular devices associated with adverse incidents
CPT/HCPCS: 0241U; 33208; 33210; 33234; 36415; 71045; 71046; 76937; 80047; 80053; 82947; 83735; 84145; 84439; 84443; 84481; 84484; 85014; 85025; 93005; 93010; 93306; 94762; 99152; 99153; 99285-25; A9270; C1769; C1781; C1785; C1894; C1898; C9113; J0690; J1580; J1644; J1815; J2250; J3010; J7030; J7040; J7050; Q9967

== ENCOUNTER → 2021-07-30 | Outpatient (CLI) | payer MEDICARE, OTHER ==
[~2021-07-30] MED LIST changes: +ALBU90OI INH; +Acetaminophen325 M1 PO; +BISA10S PR; +CEPH250A PO; +IPRAT-ALBUT 0.5-3 ML INH; +K-Dur20 MEQ PO; +LASIX20 M2 PO; +SENN187 PO; +Zithromax250 MG PO
[2021-07-30 14:00] LABS: Albumin, Blood 2.4 g/dL (3.4-5.0); Anion Gap 11 mmol/L (6-16); Blood Urea Nitrogen 45 mg/dL (8-24); Bun/Creatinine Ratio 12.2 (12.0-20.0); CO2, Blood 17 mmol/L (21-32); Calcium, Blood 7.2 mg/dL (8.5-10.1); Chloride, Blood 107 mmol/L (98-108); Creatinine, Blood 3.69 mg/dL (0.60-1.20); Glomerular Filtration Rate 16 (60-); Glucose, Blood 194 mg/dL (70-99); Potassium, Blood 3.8 mmol/L (3.5-5.5); Sodium, Blood 135 mmol/L (136-145)
== END | disposition home or self-care (01) ==
LOC: LAB RH 11:44 → EDSTATUS 15:37
PROVIDERS: Internal Medicine
DX: K70.31 Alcoholic cirrhosis of liver with ascites (principal); N18.4 Chronic kidney disease, stage 4 (severe)
CPT/HCPCS: 80069; 85018

== ENCOUNTER 2021-07-31 18:27 | Emergency (ER) | payer MEDICARE, OTHER ==
[~2021-07-31] VITALS: Ht 182.9 cm; Wt 81.7 kg
[~2021-07-31 18:27] MED LIST changes: -ALBU90OI INH; -BISA10S PR; -IPRAT-ALBUT 0.5-3 ML INH; -K-Dur20 MEQ PO; -LASIX20 M2 PO; -SENN187 PO; -Zithromax250 MG PO
[2021-07-31 19:42] LABS: Influenza A, PCR NEGATIVE (NEGATIVE); Influenza B, PCR NEGATIVE (NEGATIVE); Resp Syncytial Virus, PCR NEGATIVE (NEGATIVE); SARS-Cov-2 (COVID-19) PCR, MMC NEGATIVE (NEGATIVE)
[2021-07-31] MEDS ORDERED: Zithromax250 MG PO (20:04)
== END 2021-07-31 20:54 | disposition home or self-care (01) ==
LOC: ER 18:27
PROVIDERS: Physician Assistant
DX: J18.9 Pneumonia, unspecified organism (principal); J44.9 Chronic obstructive pulmonary disease, unspecified; E11.9 Type 2 diabetes mellitus without complications; F17.210 Nicotine dependence, cigarettes, uncomplicated; Z99.81 Dependence on supplemental oxygen; Z20.822 Contact with and (suspected) exposure to COVID-19; Z79.84 Long term (current) use of oral hypoglycemic drugs; Z79.899 Other long term (current) drug therapy
CPT/HCPCS: 0241U; 71045; 99284-25; A9270

== ENCOUNTER 2021-08-06 14:47 | Inpatient (IN) | payer MEDICARE, OTHER ==
[~2021-08-06] VITALS: Ht 182.9 cm; Wt 100.0 kg
[~2021-08-06 14:47] MED LIST changes: +Zithromax250 MG PO
[2021-08-06 15:39] LABS: BASOPHILS ABSOLUTE AUTO 0.07 K/mm3 (0.00-0.23); BASOPHILS PERCENT AUTO 1 % (0-2); EOSINOPHILS ABSOLUTE AUTO 0.25 K/mm3 (0.00-0.68); EOSINOPHILS PERCENT AUTO 5 % (0-6); Hematocrit 33.9 % (37.0-53.0); Hemoglobin 10.4 g/dL (13.5-17.5); IMMATURE GRAN ABSOLUTE AUTO 0.01 K/mm3 (0.00-0.10); IMMATURE GRAN PERCENT AUTO 0 % (0-1); LYMPHOCYTES ABSOLUTE AUTO 1.61 K/mm3 (0.84-5.20); LYMPHOCYTES PERCENT AUTO 32 % (21-46); MONOCYTES ABSOLUTE AUTO 0.48 K/mm3 (0.16-1.47); MONOCYTES PERCENT AUTO 10 % (4-13); Mean Corpuscular HGB 26.1 pg (26.0-34.0); Mean Corpuscular HGB Conc 30.7 g/dL (31.5-36.5); Mean Corpuscular Volume 85 fL (80-100); Mean Platelet Volume 9.9 fL (9.1-12.4); NEUTROPHILS ABSOLUTE AUTO 2.57 K/mm3 (1.96-9.15); NEUTROPHILS PERCENT AUTO 52 % (41-73); Platelet Count 208 K/mm3 (150-400); RDW Coefficient Variation 17.1 % (11.7-14.2); RDW Standard Deviation 52.7 fL (35.1-46.3); Red Blood Cell Count 3.98 M/mm3 (4.30-5.90); White Blood Cell Count 4.99 K/mm3 (4.00-11.30)
[2021-08-06 15:50] LABS: Albumin, Blood 2.5 g/dL (3.4-5.0); Albumin/Globulin Ratio 0.4 (0.8-1.8); Bilirubin, Total 0.2 mg/dL (0.1-1.0); Bun/Creatinine Ratio 12.3 (12.0-20.0); Calcium, Blood 6.3 mg/dL (8.5-10.1); Creatinine, Blood 3.51 mg/dL (0.60-1.20); Globulin, Blood 5.6 g/dL (2.2-4.0); Total Protein, Blood 8.1 g/dL (6.4-8.2)
[2021-08-06] MEDS ORDERED: ALBU90OI INH (16:02)
[2021-08-06] MEDS ORDERED: BISA10S PR (16:03)
[2021-08-06] MEDS ORDERED: FINA5 PO (16:03)
[2021-08-06] MEDS ORDERED: K-Dur20 MEQ PO (16:05)
[2021-08-06] MEDS ORDERED: SENN187 PO (16:06)
[2021-08-06] MEDS ORDERED: TRAM50 PO (16:07)
[2021-08-06 16:48] LABS: Source, Urine Clean Catch
[2021-08-06 16:51] LABS: Bilirubin, Urine Neg (Neg); Blood, Urine 3+ (Neg); Glucose Qualitative, Urine 3+ (Neg); Ketones, Urine Neg (Neg); Leukocyte Esterase, Urine Neg (Neg); Nitrite, Urine Neg (Neg); Protein, Urine 4+ (Neg); Urobilinogen, Urine NORM (Normal)
[2021-08-06 16:57] LABS: Appearance, Urine Clear (Clear); Color, Urine Pale Yellow (P-Yellow)
[2021-08-06 16:59] LABS: Amorphous Light (0-Heavy); Bacteria Mod /hpf; Squamous Epithelial Cells Rare /hpf (Few)
[2021-08-06 17:03] LABS: Free Thyroxine 0.95 ng/dL (0.70-1.60)
[2021-08-06 17:03] LABS: Influenza A, PCR NEGATIVE (NEGATIVE); Influenza B, PCR NEGATIVE (NEGATIVE); Resp Syncytial Virus, PCR NEGATIVE (NEGATIVE); SARS-Cov-2 (COVID-19) PCR, MMC NEGATIVE (NEGATIVE)
[2021-08-06 17:04] LABS: Thyroid Stimulating Hormone 3.66 uIU/mL (0.360-4.800); Triiodothyronine, Free 1.68 pg/mL (2.18-3.98)
[2021-08-06 18:44] LABS: Magnesium, Blood 2.1 mg/dL (1.6-2.4)
[2021-08-06 23:40] LABS: International Normalized Ratio 1.07; Prothrombin Time Results 11.2 Sec (9.7-11.5)
[2021-08-07 05:33] LABS: BASOPHILS ABSOLUTE AUTO 0.08 K/mm3 (0.00-0.23); BASOPHILS PERCENT AUTO 2 % (0-2); EOSINOPHILS ABSOLUTE AUTO 0.33 K/mm3 (0.00-0.68); EOSINOPHILS PERCENT AUTO 7 % (0-6); Hematocrit 35.9 % (37.0-53.0); Hemoglobin 11.1 g/dL (13.5-17.5); IMMATURE GRAN PERCENT AUTO 0 % (0-1); LYMPHOCYTES ABSOLUTE AUTO 1.47 K/mm3 (0.84-5.20); LYMPHOCYTES PERCENT AUTO 31 % (21-46); MONOCYTES ABSOLUTE AUTO 0.49 K/mm3 (0.16-1.47); MONOCYTES PERCENT AUTO 11 % (4-13); Mean Corpuscular HGB 26.5 pg (26.0-34.0); Mean Corpuscular HGB Conc 30.9 g/dL (31.5-36.5); Mean Corpuscular Volume 86 fL (80-100); Mean Platelet Volume 8.9 fL (9.1-12.4); NEUTROPHILS ABSOLUTE AUTO 2.31 K/mm3 (1.96-9.15); NEUTROPHILS PERCENT AUTO 49 % (41-73); Platelet Count 184 K/mm3 (150-400); RDW Standard Deviation 52.6 fL (35.1-46.3); Red Blood Cell Count 4.19 M/mm3 (4.30-5.90); White Blood Cell Count 4.68 K/mm3 (4.00-11.30)
[2021-08-07 06:00] LABS: Albumin, Blood 2.7 g/dL (3.4-5.0); Albumin/Globulin Ratio 0.5 (0.8-1.8); Bilirubin, Total 0.4 mg/dL (0.1-1.0); Bun/Creatinine Ratio 11.9 (12.0-20.0); Calcium, Blood 6.8 mg/dL (8.5-10.1); Creatinine, Blood 3.52 mg/dL (0.60-1.20); Globulin, Blood 5.5 g/dL (2.2-4.0); Potassium, Blood 3.3 mmol/L (3.5-5.5); Total Protein, Blood 8.2 g/dL (6.4-8.2)
--- NOTE | 2021-08-07 06:47 | NUR ---
SHHIFT SUMMARY: PATIENT ADMITTED FROM ED ON 6L NC. COARSE LUNGS T/O. RT PROVIDED BREATHING TREATMENT WITH SOME IMPROVEMENT. PATIENT IS [place]. WHEELCHAIR BOUND AT BASELINE. USES URINAL INDEPENDENTLY. TELE = NSR.
--- NOTE | 2021-08-07 19:09 | NUR ---
SHIFT SUMMARY PATIENT A&0X4. [place]. USES WHEELCHAIR AT BASELINE. ON 6L NC (2L BASELINE). PATIENT LUNG SOUNDS COURSE WITH EXP WHEEZING. RECEIVING BREATHING TX FROM RT. RECEIVING IV ANTIBIOTICS. VSS. WILL CONTINUE TO MONITOR.
--- NOTE | 2021-08-08 03:14 | NUR ---
SHIFT SUMMARY NO ACUTE CHANGES TO REPORT THIS SHIFT. O2 IN PLACE 6L OXYMIZER, SATS WNL. PT DENIES SOB. PT DENIES PAIN. HE HAS RESTED OFF AND ON T/O THE NIGHT. REQUESTS A FEW CUPS OF SUGAR FREE PUDDING OUT OF THE PANTRY. BLOOD GLUCOSE HAS BEEN FAIRLY CONTROLLED. PT USES URINAL INDEPENDELY. VITALS STABLE. BED IN LOWEST POSITION, CALL LIGHT WITHIN REACH.
[2021-08-08 05:15] LABS: BASOPHILS ABSOLUTE AUTO 0.09 K/mm3 (0.00-0.23); BASOPHILS PERCENT AUTO 1 % (0-2); EOSINOPHILS ABSOLUTE AUTO 0.45 K/mm3 (0.00-0.68); EOSINOPHILS PERCENT AUTO 6 % (0-6); Hematocrit 34.3 % (37.0-53.0); Hemoglobin 10.5 g/dL (13.5-17.5); IMMATURE GRAN ABSOLUTE AUTO 0.02 K/mm3 (0.00-0.10); IMMATURE GRAN PERCENT AUTO 0 % (0-1); LYMPHOCYTES ABSOLUTE AUTO 1.77 K/mm3 (0.84-5.20); LYMPHOCYTES PERCENT AUTO 25 % (21-46); MONOCYTES ABSOLUTE AUTO 0.86 K/mm3 (0.16-1.47); MONOCYTES PERCENT AUTO 12 % (4-13); Mean Corpuscular HGB 26.3 pg (26.0-34.0); Mean Corpuscular HGB Conc 30.6 g/dL (31.5-36.5); Mean Corpuscular Volume 86 fL (80-100); Mean Platelet Volume 8.6 fL (9.1-12.4); NEUTROPHILS ABSOLUTE AUTO 3.83 K/mm3 (1.96-9.15); NEUTROPHILS PERCENT AUTO 55 % (41-73); Platelet Count 203 K/mm3 (150-400); RDW Coefficient Variation 17.1 % (11.7-14.2); Red Blood Cell Count 3.99 M/mm3 (4.30-5.90); White Blood Cell Count 7.02 K/mm3 (4.00-11.30)
[2021-08-08 05:32] LABS: Albumin, Blood 2.6 g/dL (3.4-5.0); Anion Gap 9 mmol/L (6-16); Blood Urea Nitrogen 44 mg/dL (8-24); Bun/Creatinine Ratio 11.9 (12.0-20.0); CO2, Blood 19 mmol/L (21-32); Calcium, Blood 6.6 mg/dL (8.5-10.1); Chloride, Blood 113 mmol/L (98-108); Creatinine, Blood 3.71 mg/dL (0.60-1.20); Glomerular Filtration Rate 16 (60-); Glucose, Blood 93 mg/dL (70-99); Phosphorus, Blood 4.4 mg/dL (2.5-4.9); Potassium, Blood 3.7 mmol/L (3.5-5.5); Sodium, Blood 141 mmol/L (136-145)
--- NOTE | 2021-08-08 19:32 | NUR ---
SHIFT SUMMARY PATIENT A&O X4. WHEELCHAIR BOUND AT BASELINE. USES BEDPAN AND URINAL. LUNG SOUNDS COURSE WITH A PRODUCTIVE COUGH. USING FLUTTER VALVE. ON 4L NC. (2L BASELINE). RECEIVING IV ANTIBIOTICS. NO SIGNIFICANT EVENTS T/O SHIFT. REPORT GIVEN TO ONCOMING RN.
[2021-08-09 05:08] LABS: BASOPHILS ABSOLUTE AUTO 0.07 K/mm3 (0.00-0.23); BASOPHILS PERCENT AUTO 1 % (0-2); EOSINOPHILS ABSOLUTE AUTO 0.34 K/mm3 (0.00-0.68); EOSINOPHILS PERCENT AUTO 5 % (0-6); Hematocrit 34.5 % (37.0-53.0); Hemoglobin 10.8 g/dL (13.5-17.5); IMMATURE GRAN ABSOLUTE AUTO 0.01 K/mm3 (0.00-0.10); IMMATURE GRAN PERCENT AUTO 0 % (0-1); LYMPHOCYTES ABSOLUTE AUTO 2.21 K/mm3 (0.84-5.20); LYMPHOCYTES PERCENT AUTO 35 % (21-46); MONOCYTES ABSOLUTE AUTO 0.58 K/mm3 (0.16-1.47); MONOCYTES PERCENT AUTO 9 % (4-13); Mean Corpuscular HGB 26.4 pg (26.0-34.0); Mean Corpuscular HGB Conc 31.3 g/dL (31.5-36.5); Mean Corpuscular Volume 84 fL (80-100); Mean Platelet Volume 9.3 fL (9.1-12.4); NEUTROPHILS ABSOLUTE AUTO 3.08 K/mm3 (1.96-9.15); NEUTROPHILS PERCENT AUTO 49 % (41-73); Platelet Count 207 K/mm3 (150-400); RDW Coefficient Variation 17.3 % (11.7-14.2); Red Blood Cell Count 4.09 M/mm3 (4.30-5.90); White Blood Cell Count 6.29 K/mm3 (4.00-11.30)
--- NOTE | 2021-08-09 05:15 | NUR ---
SHIFT SUMMAR NOC: PT IS PLEASANT AND COMPLIANT WITH CARE. PT PULLED IV OUT DURING TOSSING/TURNING IN SLEEP. NEW IV PLACE. NO ADVERSE EVENTS ON STREET CLEANING EQUIPMENT OPERATOR.
[2021-08-09 06:00] LABS: Albumin, Blood 2.7 g/dL (3.4-5.0); Anion Gap 9 mmol/L (6-16); Blood Urea Nitrogen 49 mg/dL (8-24); Bun/Creatinine Ratio 13.6 (12.0-20.0); CO2, Blood 19 mmol/L (21-32); Calcium, Blood 7.1 mg/dL (8.5-10.1); Chloride, Blood 110 mmol/L (98-108); Creatinine, Blood 3.59 mg/dL (0.60-1.20); Glomerular Filtration Rate 16 (60-); Glucose, Blood 102 mg/dL (70-99); Phosphorus, Blood 3.9 mg/dL (2.5-4.9); Potassium, Blood 3.9 mmol/L (3.5-5.5); Sodium, Blood 138 mmol/L (136-145)
--- NOTE | 2021-08-09 07:30 | NUR ---
ASSUMED CARE: PT CURRENTLY ON 4L O2 VIA NC. NO ACUTE NEEDS AT THIS TIME.
--- NOTE | 2021-08-09 10:45 | NUR ---
INFECTION CONTROL CALLED AND STATED SPUTUM WAS POSITIVE FOR MRSA. CALL TO PHARMACY WHO STATES PT WILL NEED A DIFFERENT ABX. CALL TO DR VILLANUEVA WHO STATED HE WILL CALL BACK
--- NOTE | 2021-08-09 11:32 | NUR ---
DR VILLANUEVA CALLED BACK AND WAS MADE AWARE OF MRSA IN SPUTUM. STATED HE WILL REVIEW ABX AND COME SEE PT AT A LATER TIME. DAUGHTER AT BEDSIDE AND MADE AWARE OF THIS.
--- NOTE | 2021-08-09 17:41 | NUR ---
SHIFT SUMMARY: PT RESTING OFF AND ON T/O DAY. 3L O2 VIA NC IN PLACE. [place] BUT ALERT AND ORIENTED, APPROPRIATE. ABX CHANGED DUE TO MRSA GROWTH IN SPUTUM. DAUGHTER AT BEDSIDE AND UPDATED BY MD. NO FURTHER NEEDS AT THIS TIME.
--- NOTE | 2021-08-10 05:31 | NUR ---
SHIFT SUMMARY: PT VERY HARD OF HEARING, A&O*4, COMPLIANT, VERY PLEASANT. PT HAD 2 BM'S ON GEOSPATIAL INTELLIGENCE ANALYST USING BEDPAN. STOOLS VERY LOOSE BROWN. LUNGS WET CRACKLES PRODUCTIVE COUGH. HEART V-PACED 80-90'S. PT REMAINS IN BED HAS NOT GOTTEN UP ON GEOSPATIAL INTELLIGENCE ANALYST. TURNS IN BED FAIRLY WELL.
[2021-08-10 06:25] LABS: Albumin, Blood 2.7 g/dL (3.4-5.0); Anion Gap 9 mmol/L (6-16); Blood Urea Nitrogen 55 mg/dL (8-24); Bun/Creatinine Ratio 15.6 (12.0-20.0); CO2, Blood 18 mmol/L (21-32); Chloride, Blood 112 mmol/L (98-108); Creatinine, Blood 3.53 mg/dL (0.60-1.20); Glomerular Filtration Rate 17 (60-); Glucose, Blood 109 mg/dL (70-99); Phosphorus, Blood 4.6 mg/dL (2.5-4.9); Potassium, Blood 4.3 mmol/L (3.5-5.5); Sodium, Blood 139 mmol/L (136-145); Vancomycin, Random 17.9 ug/mL
--- NOTE | 2021-08-10 10:22 | NUR ---
PT COOPERATIVE AND PLEASANT. A/O X3. [place]. FORGETFUL AT TIMES. H/R REGULAR. ON TELE. PER TECH V-PACED AT 85. NO MURMUR NOTED. LUNGS COARSE AND WHEEZING. 4L VIA NASAL CANNULA. BREATHING IS EASY AND UNLABORED. LAST BM WAS LAST NIGHT PER REPORT. SENNA HELD FOR LOOSE STOOL. 100ML OF URINE IN URINAL. CLEAR AND YELLOW. NO EDEMA. PT USES A WHEELCHAIR AT BASELINE. BED IN LOW POSITON, CALL LIGHT IN REACH, CALLS APPROPRIATLY.
--- NOTE | 2021-08-10 14:51 | NUR ---
PT ON 4L VIA NASAL CANNULA. ATTEMPTED TO TITRATE PT DOWN ON OXYGEN PER DR ORDERS. WHEN MOVED TO 2L PT SPO2 DROPPED TO 89%. TURNED PT TO 3L AND HE IS RESTING AT 92%. WILL CONTINUE TO MONITOR. BED IN LOW POSITION, CALL LIGHT IN REACH, CALLS APPROPRIATLEY.
--- NOTE | 2021-08-10 18:26 | NUR ---
PT COOPERATIVE AND PLEASANT. A/O X3. DENIES PAIN. CONFUSED AT TIMES. H/R REGULAR. NSR ON TELE. NO MURMUR NOTED. WHEEZING AND CRACKLES HEARD. ON 3L VIA NASAL CANNULA. MONITORING SPO2 IN ORDER TO TITRATE PER DR ORDERS. BREATHING IS LABORED WHEN LAYING DOWN. SPO2 REMAINS ABOVE 90%. LAST BM WAS LAST NIGHT PER REPORT. PT URINATES INDEPENDENTLY IN BED USING URINAL. BED IN LOW POSITION, CALL LIGHT IN REACH, CALLS APPROPRIATLEY.
--- NOTE | 2021-08-10 18:35 | NUR ---
AGREE WITH STUDENT NOTES AND DOCUMENTATION
[2021-08-11 07:58] LABS: Albumin, Blood 2.8 g/dL (3.4-5.0); Anion Gap 8 mmol/L (6-16); Blood Urea Nitrogen 56 mg/dL (8-24); Bun/Creatinine Ratio 16.9 (12.0-20.0); CO2, Blood 19 mmol/L (21-32); Calcium, Blood 7.4 mg/dL (8.5-10.1); Chloride, Blood 113 mmol/L (98-108); Creatinine, Blood 3.32 mg/dL (0.60-1.20); Glomerular Filtration Rate 18 (60-); Glucose, Blood 124 mg/dL (70-99); Phosphorus, Blood 4.5 mg/dL (2.5-4.9); Potassium, Blood 4.6 mmol/L (3.5-5.5); Sodium, Blood 140 mmol/L (136-145); Vancomycin, Random 21.2 ug/mL
--- NOTE | 2021-08-11 16:34 | NUR ---
Attempted to visit with Pt. Pt resting in be with his eyes closed. Pt wakes to gentle verbal stimuli but struggles staying awake. Pt appears graugy. Ended visit to allow Pt to rest. No S/S of distress at this time. Reviewed chart and discussed case with Primary RN Aric. Possible plan for Pt to D/C back to [facility] tomorrow. Pt has POLST on file that aligns with current code status. Palliative Care will remain available.
--- NOTE | 2021-08-11 16:42 | NUR ---
SHIFT SUMMARY PATIENT IS ALERT AND ORIENTED X3-4. PATIENT HAS BEEN [place] AND LEFT EAR IS BETTER FOR COMMUNICATION. CBG HAS BEEN UNDER CONTROL. PATIENT HAS HAD STOOL SOFTNERS HELD DUE TO LOOSE STOOLS REPORTED. PATIENT HAS CONGESTION AND WET SOUNDING LUNGS. PATIENT ON TELE AND IS PACED. PATIENT TURNS INDEPENDENTLY IN BED. NO ACUTE EVENTS THIS SHIFT. VITAL SIGNS REVIEWED. PATIENT IS PLANNING ON DISCHARGING TOMORROW. BED IN LOCKED AND LOWEST POSITION. CALL LIGHT IN PLACE.
[2021-08-12 05:16] LABS: Albumin, Blood 2.9 g/dL (3.4-5.0); Anion Gap 9 mmol/L (6-16); Blood Urea Nitrogen 55 mg/dL (8-24); Bun/Creatinine Ratio 17.6 (12.0-20.0); CO2, Blood 18 mmol/L (21-32); Calcium, Blood 7.9 mg/dL (8.5-10.1); Chloride, Blood 111 mmol/L (98-108); Creatinine, Blood 3.13 mg/dL (0.60-1.20); Glomerular Filtration Rate 19 (60-); Glucose, Blood 115 mg/dL (70-99); Phosphorus, Blood 4.3 mg/dL (2.5-4.9); Potassium, Blood 4.8 mmol/L (3.5-5.5); Sodium, Blood 138 mmol/L (136-145); Vancomycin, Random 19.5 ug/mL
[2021-08-12] MEDS ORDERED: CALC.25 PO (13:03)
[2021-08-12] MEDS ORDERED: DOXY100 PO (13:03)
[2021-08-12] MEDS ORDERED: LASIX20 M2 PO (13:04)
[2021-08-12] MEDS ORDERED: IPRAT-ALBUT 0.5-3 ML INH (13:05)
[2021-08-12] MEDS ORDERED: TAMS.4ER PO (13:06)
[2021-08-12 13:22] LABS: Influenza A, PCR NEGATIVE (NEGATIVE); Influenza B, PCR NEGATIVE (NEGATIVE); Resp Syncytial Virus, PCR NEGATIVE (NEGATIVE); SARS-Cov-2 (COVID-19) PCR, MMC NEGATIVE (NEGATIVE)
--- NOTE | 2021-08-12 16:10 | NUR ---
DISCHARGE SUMMARY PATIENT IS ALERT AND ORIENTED X3-4. PATIENT REMAINED ON 2L O2 SATTING ABOVE 90. PATIENT HAS HAD NO COMPLAINTS OF NAUSEA, VOMITTING, PAIN OR SOB. NO ACUTE EVENTS THIS SHIFT. VITAL SIGNS REVIEWED. PATIENT WAS DISCHARGED TO [facility] VIA [facility].
== END 2021-08-12 16:06 | DRG 177 ==
LOC: ER 14:47 → MEDS 20:24
PROVIDERS: Internal Medicine; Internal Medicine Endocrinology, Diabetes & Metabolism; Physician Assistant; ADMIT Internal Medicine
DX: J15.212 Pneumonia due to Methicillin resistant Staphylococcus aureus (principal); J96.21 Acute and chronic respiratory failure with hypoxia; I50.33 Acute on chronic diastolic (congestive) heart failure; J44.0 Chronic obstructive pulmonary disease with (acute) lower respiratory infection; N18.4 Chronic kidney disease, stage 4 (severe); I13.0 Hypertensive heart and chronic kidney disease with heart failure and stage 1 through stage 4 chronic kidney disease, or unspecified chronic kidney disease; J44.1 Chronic obstructive pulmonary disease with (acute) exacerbation; Z66 Do not resuscitate; Z20.822 Contact with and (suspected) exposure to COVID-19; K70.30 Alcoholic cirrhosis of liver without ascites; M19.90 Unspecified osteoarthritis, unspecified site; F17.210 Nicotine dependence, cigarettes, uncomplicated; E11.22 Type 2 diabetes mellitus with diabetic chronic kidney disease; E78.5 Hyperlipidemia, unspecified; G25.81 Restless legs syndrome; N40.0 Benign prostatic hyperplasia without lower urinary tract symptoms; E83.51 Hypocalcemia; Z91.038 Other insect allergy status; Z91.09 Other allergy status, other than to drugs and biological substances; Z86.73 Personal history of transient ischemic attack (TIA), and cerebral infarction without residual deficits; Z95.0 Presence of cardiac pacemaker; Z79.2 Long term (current) use of antibiotics; Z79.899 Other long term (current) drug therapy
CPT/HCPCS: 0241U; 36415; 71045; 80053; 80069; 80202; 81001; 82330; 82947; 83605; 83735; 83880; 83970; 84100; 84145; 84439; 84443; 84481; 85025; 85610; 87040; 87070; 87077; 87086; 87147; 87186; 87205; 92526; 92610; 93005; 93010; 94640; 94664; 94760; 96374; 96375; 97165; 97530; 99285-25; A9270; C8929; J0696; J1644; J1940; J1956; J3370; J7060; Q9957

== ENCOUNTER 2021-08-31 15:04 | Emergency (ER) | payer MEDICARE, OTHER ==
[~2021-08-31] VITALS: Ht 182.9 cm; Wt 99.8 kg
[~2021-08-31 15:04] MED LIST changes: +ALBU90OI INH; +BISA10S PR; +IPRAT-ALBUT 0.5-3 ML INH; +K-Dur20 MEQ PO; +LASIX20 M2 PO; +SENN187 PO
== END 2021-08-31 17:37 | disposition home or self-care (01) ==
LOC: ER 15:04
DX: Z00.00 Encounter for general adult medical examination without abnormal findings (principal); J44.9 Chronic obstructive pulmonary disease, unspecified; E11.22 Type 2 diabetes mellitus with diabetic chronic kidney disease; N18.9 Chronic kidney disease, unspecified; F17.210 Nicotine dependence, cigarettes, uncomplicated; Z79.899 Other long term (current) drug therapy; Z91.030 Bee allergy status
CPT/HCPCS: 71045